=== PATIENT | male | born 1965 | race Caucasian/White ===

== ENCOUNTER → 2020-10-20 12:46 | Outpatient (BNVA) | payer OTHER, SELFPAY | PROVIDERS: PCP Internal Medicine; Visit Provider Physician Assistant | DX: M25.462 Effusion, left knee (principal); Z91.81 History of falling | CPT/HCPCS: 99203; Q3014 ==

== ENCOUNTER → 2022-08-03 13:38 | Outpatient (BNVA) | payer SELFPAY | PROVIDERS: PCP Internal Medicine; Visit Provider Physician Assistant Medical | DX: Z02.79 Encounter for issue of other medical certificate (principal) ==

== ENCOUNTER → 2024-06-17 11:12 | Outpatient (BNVA) | payer SELFPAY | PROVIDERS: PCP Internal Medicine; Visit Provider Physician Assistant Medical | DX: Z02.79 Encounter for issue of other medical certificate (principal) ==